=== PATIENT | male | born 1950 | race Caucasian/White ===

== ENCOUNTER 2020-11-01 17:54 | Emergency (ER) | payer MEDICARE, OTHER ==
[2020-11-01 18:28] LABS: HEMOGLOBIN 14.6 gm/dl (14.0-17.5); RED BLOOD COUNT 4.87 M/UL (4.20-5.50); WHITE BLOOD COUNT 9.2 K/UL (4.5-11.0)
[2020-11-01 18:46] LABS: BUN/CREATININE RATIO 9 (0-10)
== END 2020-11-01 19:44 | disposition short-term general hospital (02) ==
LOC: ER1 17:54
PROVIDERS: Emergency Medicine
DX: I63.9 Cerebral infarction, unspecified (principal); R29.705 NIHSS score 5; Z20.822 Contact with and (suspected) exposure to COVID-19
CPT/HCPCS: 70450; 70496; 70498; 71045; 80053; 82550; 82553; 83735; 83874; 83880; 84100; 84439; 84443; 84484; 85025; 85610; 85730; 93005; 99285; J2997; Q9967; U0002